=== PATIENT | female | born 1970 | race Caucasian/White ===

== ENCOUNTER 2019-08-05 07:18 | Outpatient (CLI) | payer OTHER, SELFPAY ==
--- NOTE | ~2019-08-05 | MM_ITS ---
EXAMINATION: MM screening [facility] BI w damian HISTORY: Screening mammogram TECHNIQUE: Craniocaudal and mediolateral oblique 3-D tomosynthesis images were obtained and synthetic 2-D images were generated. Bilateral rotated lateral cc views. CAD analysis was submitted and interp reted. COMPARISON: 07/2018 diagnostic right digital mammogram and limited right breast ultrasound examinatio n 07/30/2018, 03/13/2017 bilateral digital screening mammogram examinations BREAST PARENCHYMAL COMPOSITION: The breasts are heterogeneously dense, which may obscure small masses . FINDINGS: There is no evidence of suspicious mass, calcification, or architectural distortion to sugg est malignancy in either breast. There has been no suspicious interval change. IMPRESSION: 1. No mammographic evidence of malignancy. 2. Recommend routine screening mammography in one year. BI-RADS Category 1: Negative Reviewed, dictated and finalized at location A.
== END 2019-08-05 07:19 | disposition home or self-care (01) ==
PROVIDERS: PCP Family Medicine; Visit Provider Student in an Organized Health Care Education/Training Program
DX: Z12.31 Encounter for screening mammogram for malignant neoplasm of breast (principal)
CPT/HCPCS: 77063; 77067

== ENCOUNTER 2020-08-10 08:32 | Outpatient (CLI) | payer OTHER, SELFPAY ==
--- NOTE | ~2020-08-10 | MM_ITS ---
EXAMINATION: MM screening [facility] BI w damian HISTORY: Screening mammogram TECHNIQUE: Craniocaudal and mediolateral oblique 3-D tomosynthesis images were obtained and synthetic 2-D images were generated. CAD analysis was submitted and interpreted. COMPARISON: 08/05/2019 bilateral digital screening mammogram Diagnostic right digital mammogram and limited right breast ultrasound on 08/03/2018 07/30/2018, 03/13/2017, 11/19/2015 bilateral digital screening mammogram examinations BREAST PARENCHYMAL COMPOSITION: The breasts are heterogeneously dense, which may obscure small masses . FINDINGS: There is no evidence of suspicious mass, calcification, or architectural distortion to sugg est malignancy in either breast. There has been no suspicious interval change. IMPRESSION: 1. No mammographic evidence of malignancy. 2. Recommend routine screening mammography in one year. BI-RADS Category 1: Negative Reviewed, dictated and finalized at location A.
== END 2020-08-10 08:33 | disposition home or self-care (01) ==
LOC: ANHIMG 08:35
PROVIDERS: PCP Family Medicine; Visit Provider Student in an Organized Health Care Education/Training Program
DX: Z12.31 Encounter for screening mammogram for malignant neoplasm of breast (principal)
CPT/HCPCS: 77063; 77067

== ENCOUNTER 2021-07-23 14:16 | Outpatient (CLI) | payer OTHER, SELFPAY ==
--- NOTE | ~2021-07-23 | XR_ITS ---
EXAM: XR lumbar spine min 4V DATE: 07/23/2021 14:33 HISTORY: M54.42 - Lumbago with sciatica, left side . COMPARISON: None available. FINDINGS: 5 nonrib-bearing lumbar-type vertebral bodies. Pedicles intact. Normal vertebral body alig nment. Vertebral body heights preserved. Disc spaces maintained. Sclerosis and hypertrophy of the L3- 4 through L5-S1 facets. No fracture or dislocation. IMPRESSION: Lower lumbar facet arthropathy. Reviewed, dictated and finalized at location K.
== END 2021-07-23 14:17 | disposition home or self-care (01) ==
PROVIDERS: PCP Family Medicine; Visit Provider Family Medicine
DX: M54.42 Lumbago with sciatica, left side (principal); G89.29 Other chronic pain
CPT/HCPCS: 72110

== ENCOUNTER 2021-10-04 07:19 | Outpatient (CLI) | payer OTHER, SELFPAY ==
--- NOTE | ~2021-10-04 | MM_ITS ---
EXAMINATION: MM screening abhis[facility]k BI w damian HISTORY: Screening TECHNIQUE: Craniocaudal and mediolateral oblique 3-D tomosynthesis images were obtained and synthetic 2-D images were generated. CAD analysis was submitted and interpreted. COMPARISON: Comparison to multiple prior studies sequentially, with oldest reviewed study dated 11/2015. BREAST PARENCHYMAL COMPOSITION: The breasts are heterogeneously dense, which may obscure small masses . FINDINGS: There is no evidence of suspicious mass, calcification, or architectural distortion to sugg est malignancy in either breast. There has been no suspicious interval change. IMPRESSION: 1. No mammographic evidence of malignancy. 2. Recommend routine screening mammography in one year. BI-RADS Category 1: Negative Reviewed, dictated and finalized at location A.
== END 2021-10-04 07:20 | disposition home or self-care (01) ==
LOC: ANHIMG 07:21
PROVIDERS: PCP Family Medicine; Visit Provider Obstetrics & Gynecology
DX: Z12.31 Encounter for screening mammogram for malignant neoplasm of breast (principal)
CPT/HCPCS: 77063; 77067

== ENCOUNTER 2022-01-09 01:48 | Day surgery (SDC) | payer OTHER, SELFPAY ==
[2022-01-03 16:25] VITALS: BMI 22.0
--- NOTE | 2022-01-03 16:33 | PC.NURSE ---
Report to the Outpatient Waiting Room, entrance under the green pavilion located off [facility], at time _0600_ on date _[id number]_. Planned Procedure Time: _0730_. Time changes happen often and if your time is changed the preop area will call you the afternoon before. - You and your visitor will be asked to self-screen and do not enter if you have any COVID symptoms. - We encourage only one visitor and NO visitors under age 16 are allowed at this time. Your visitor will receive communication by the phone number that is given day of service. - The patient visitor is requested to social distance or may leave the building when not with patient due to restrictions. - A mask is required within the hospital. Patients may have clear liquids (water, carbonated beverages, clear teas, apple juice) until 3 hours prior to surgery with a maximum of 20 ounces. - No food from midnight until time of surgery Take the following medications with a SIP of water the morning of surgery: __Gabapentin Medications to discontinue per physician None Date to take last dose Please no make-up, nail hungarian, hairspray, perfume, deodorant, or body powder the day of surgery. No jewelry (including any body piercings) or valuables the day of surgery, leave them at home. Please take a shower or bath the night before, or the morning of, surgery with an antibacterial soap. Wear comfortable, loose fitting clothing. - Jewelry must be removed prior to entering the operating room. Rings and piercings that are not removed may be cut off. - The hospital will not accept responsibility for valuables. - Please leave all valuables, including medications, at home the day of surgery. If you are going home after surgery, a licensed coach driver must drive you home. - NO public transportation without another adult. - We recommend that an adult stay with you for 24 hours following discharge. - We also recommend that you do not drive, make important decision, drink alcoholic beverages, or take any drugs that were not prescribed by your health care provider for at least 24 hours after your discharge time. Follow any additional instructions given to you from your surgeon. If you or anyone in your household have experienced Covid symptoms in the past week, please notify your surgeon or the nurse liaison at the phone number below for possible testing. Telephone instructions given to __Patient___and asked if any additional questions and then verbalized understanding. Patient advised to call surgeon office or pre surgery nurse liaison [phone] if any additional questions.
[2022-01-09] MEDS: ACETAMINOPHEN 500 MG TABLET 1000 MG PO (06:40)
[2022-01-09 06:41] VITALS: BP 130/86; PULSE 100; RESP 14; TEMP 36.5; O2SAT 100
--- NOTE | 2022-01-09 06:55 | WPDANESEPPF ---
Anes - Initial Pre Proc Eval Procedure: Operation Date: 01/09/22 07:30 Proposed Procedures p Hysteroscopy Dilation and Curettage with Francoise Endometrial Ablation - Boris Bryant MD Date/Time: 01/09/22 06:55 Surgeon: Boris Bryant MD Pre Op Diagnosis: Menometrorrhagia Patient Data Age: 51 Gender: F Height: 1.6 m Weight: 56.9 kg Last Vital Signs Temp 36.5 C 01/09/22 06:41 Pulse 100 01/09/22 06:41 Resp 14 01/09/22 06:41 BP 130/86 01/09/22 06:41 Pulse Ox 100 01/09/22 06:41 O2 Del Method Room Air 01/09/22 06:41 Allergies Allergy/AdvReac Type Severity Reaction Status Date / Time iodine Allergy Unknown Rash Verified 01/09/22 06:45 shellfish derived Allergy Unknown Rash Verified 01/09/22 06:45 Sulfa (Sulfonamide Allergy Unknown Rash Verified 01/09/22 06:45 Antibiotics) Home Medications Medication Instructions Recorded Confirmed Type cetirizine 10 mg tablet (Zyrtec) 10 mg PO DAILY PRN allergy symptoms 08/16/19 01/03/22 History gabapentin 100 mg capsule 100 mg PO . q.a.m. #90 caps 11/14/21 01/09/22 Rx gabapentin 300 mg capsule 300 mg PO . q.h.s. #90 caps 11/14/21 01/03/22 Rx montelukast 10 mg tablet 10 mg PO DAILY #90 tabs 11/14/21 01/03/22 Rx (Singulair) ibuprofen 200 mg tablet 200 mg PO QAM 01/03/22 01/03/22 History Patient hx anesthesia problems: none Family hx anesthesia problems: none Results Review: All pre-operative results and documents have been reviewed as part of the pre-operative evaluation. [facility], [facility] Past Medical History Medical History Abnormal mammogram 07-30-2018 right breast mass dx mamm and US done 08/03/2018 Benign - recommend annual screening Abnormal Pap smear of cervix (~2010) BMI 22.0-22.9, adult Carpal tunnel syndrome of left wrist the patient had surgery on the right previously. She is right-hand dominant Chronic low back pain with left-sided sciatica (~03/2021) Colon cancer screening COVID-19 (01/31/20) Encounter for IUD insertion 2000 Mirena insertion 05/08/17 Mirena removal/reinsertion Encounter for IUD removal 05/08/17 Mirena removal/reinsertion 09/28/18 Mirena removal Encounter for wellness examination in adult Headache History of back problems Kidney stone (~1996) Metatarsalgia of both feet Pain of right thumb Screening mammogram, encounter for Seasonal allergic rhinitis TMJ (temporomandibular joint syndrome) Trigeminal neuralgia of right side of face Surgical History Surgical History History of carpal tunnel surgery (~2008) Family History Family History Grandparent Cerebrovascular accident maternal grandmother Hypertension maternal grandmother Osteoporosis maternal grandmother Breast cancer maternal grandmother Mother Hypertension Father Atrial fibrillation Other Carcinoma of colon paternal aunt Social History Social History Smoking status: Never smoker Alcohol intake: current Drinks per week: 1 Substance use: never Substance use type: does not use Living arrangements: with family Additional living arrangements comments: 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
--- NOTE | 2022-01-09 07:33 | PM.IMHP ---
H&P: HPI History of Present Illness Date/Time: 01/09/22 07:33 51-year-old female presents complaints menstrual cycles lasting 5-7 days 3-5 days heavy clotting cramping has been ongoing issue and increasing over the past 6-12 months. No issues throughout the rest of the month and all of her other imaging has been normal. Chief Complaint: Menometrorrhagia Review of Systems Review of Systems: All systems reviewed & are unremarkable except as noted in HPI and below PMFSH Past Medical History Medical History Abnormal mammogram 07-30-2018 right breast mass dx mamm and US done 08/03/2018 Benign - recommend annual screening Abnormal Pap smear of cervix (~2010) BMI 22.0-22.9, adult Carpal tunnel syndrome of left wrist the patient had surgery on the right previously. She is right-hand dominant Chronic low back pain with left-sided sciatica (~03/2021) Colon cancer screening COVID-19 (01/31/20) Encounter for IUD insertion 2000 Mirena insertion 05/08/17 Mirena removal/reinsertion Encounter for IUD removal 05/08/17 Mirena removal/reinsertion 09/28/18 Mirena removal Encounter for wellness examination in adult Headache History of back problems Kidney stone (~1996) Metatarsalgia of both feet Pain of right thumb Screening mammogram, encounter for Seasonal allergic rhinitis TMJ (temporomandibular joint syndrome) Trigeminal neuralgia of right side of face Surgical History Surgical History History of carpal tunnel surgery (~2008) Family History Family History Grandparent Cerebrovascular accident maternal grandmother Hypertension maternal grandmother Osteoporosis maternal grandmother Breast cancer maternal grandmother Mother Hypertension Father Atrial fibrillation Other Carcinoma of colon paternal aunt Social History Social History Smoking status: Never smoker Alcohol intake: current Drinks per week: 1 Substance use: never Substance use type: does not use Living arrangements: with family Additional living arrangements comments: 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 q.a.m. #90 caps 11/14/21 01/09/22 Rx gabapentin 300 mg capsule 300 mg PO . q.h.s. #90 caps 11/14/21 01/03/22 Rx montelukast 10 mg tablet 10 mg PO DAILY #90 tabs 11/14/21 01/03/22 Rx (Singulair) ibuprofen 200 mg tablet 200 mg PO QAM 01/03/22 01/03/22 History Allergies Allergy/AdvReac Type Severity Reaction Status Date / Time iodine Allergy Unknown Rash Verified 01/09/22 06:45 shellfish derived Allergy Unknown Rash Verified 01/09/22 06:45 Sulfa (Sulfonamide Allergy Unknown Rash Verified 01/09/22 06:45 Antibiotics) Vital Signs Vital Signs - 24 hr 01/09/22 06:41 Temperature 97.7 F Pulse Rate 100 Respiratory Rate 14 Blood Pressure 130/86 Pulse Oximetry 100 Oxygen Delivery Room Air Exam Const: General: cooperative, healthy appearing and comfortable Resp: Effort & Inspection: normal respiratory effort Auscultation: clear to auscultation bilaterally Cardio: Rate: regular rate Rhythm: regular rhythm GI: Inspection: normal to inspection Auscultation: normal bowel sounds : External Female Exam: normal external appearance Speculum Exam - Vagina: normal appearance of the vagina Speculum Exam - Cervix: normal appearance of
--- NOTE | 2022-01-09 07:35 | WPDHPUPDATE1 ---
History and Physical Update Update Date/Time: 01/09/22 07:35 History and Physical has been reviewed, including an updated exam of the patient. There are NO changes in the patient's condition. Risks, benefits, and alternatives have been discussed and questions answered. Patient agrees to proceed with procedure.
[2022-01-09] MEDS: ceFAZolin 2 GM/D5W 50 ML 2 GM/50 ML BAG IVPB (07:39)
[2022-01-09] MEDS: LIDOCAINE HCL 1% PF 30 ML VIAL 10 ML INFILTRATE (07:48)
[2022-01-09] MEDS: KETOROLAC 30 MG/ML VIAL (*BKC) IV PUSH (07:56)
--- NOTE | 2022-01-09 08:11 | W.PM.PROC2 ---
Procedure Note - Detailed Date of Procedure 01/09/22 Pre-op Diagnosis Menometrorrhagia Post-op Diagnosis Same Procedure Performed Hysteroscopy with uterine curettings Surgeon Boris Bryant MD Anesthesia MAC Indications Menometrorrhagia Findings 1. Small intrauterine cavity with no abnormalities noted on hysteroscopic exam. Description of Procedure Patient was prepped in usual manner for this procedure. Cervix was dilated to allow the hysteroscope placed which did reveal small intrauterine cavity with no abnormalities polyps or fibroids. Small amount of curettings were obtained the these were very scant in amount. Ablation instrument was then placed and unable to appropriately place device due to small cavity. At this point that portion of the procedure was aborted and the entire procedure at this point was considered complete. Patient was then sent to the recovery room in stable condition. Estimated Blood Loss 10 Drains No Packing No Pathology Yes Complications No immediate complications (Though unable to perform ablation.) Condition Stable Disposition PACU [facility] Billing Surgery - Charge Forward: Surgery Billing
[2022-01-09 08:17] VITALS: BP 101/72; PULSE 85; RESP 12; O2SAT 98
[2022-01-09] MEDS: LACTATED RINGERS 1,000 ML 30 ML IV CONT (08:17)
[2022-01-09 08:45] VITALS: BP 117/67; PULSE 79; RESP 20
[2022-01-09 09:15] VITALS: BP 114/74; PULSE 71; RESP 20
== END 2022-01-09 09:20 | disposition home or self-care (01) ==
PROVIDERS: PCP Family Medicine; Visit Provider Obstetrics & Gynecology
PROC: 0U5B8ZZ Destruction of Endometrium, Via Natural or Artificial Opening Endoscopic (ICD-10-PCS; CPT 58563; principal; 2022-01-09 07:30)
DX: N92.1 Excessive and frequent menstruation with irregular cycle (principal)
CPT/HCPCS: 58558; 88305; A9270; J0690; J1885; J2250; J2405; J2704; J7030; J7120

== ENCOUNTER 2022-10-24 07:16 | Outpatient (CLI) | payer OTHER, SELFPAY ==
--- NOTE | ~2022-10-24 | MM_ITS ---
EXAMINATION: MM screening [facility] BI w damian HISTORY: Screening mammogram TECHNIQUE: Craniocaudal and mediolateral oblique 3-D tomosynthesis images were obtained and synthetic 2-D images were generated. CAD analysis was submitted and interpreted. COMPARISON: 10/04/2021, 08/10/2020, 08/05/2019 BREAST PARENCHYMAL COMPOSITION: The breasts are heterogeneously dense, which may obscure small masses . FINDINGS: No suspicious mass, calcification, or architectural distortion are identified in either mac ast to suggest malignancy. There has been no suspicious interval change. IMPRESSION: 1. No mammographic evidence of malignancy. 2. Recommend routine screening mammography in one year. BI-RADS Category 1: Negative Reviewed, dictated and finalized at location A.
== END 2022-10-24 07:17 | disposition home or self-care (01) ==
LOC: ANHIMG 07:20
PROVIDERS: PCP Family Medicine; Visit Provider Obstetrics & Gynecology
DX: Z12.31 Encounter for screening mammogram for malignant neoplasm of breast (principal)
CPT/HCPCS: 77063; 77067

== ENCOUNTER 2022-11-28 01:34 | Day surgery (SDC) | payer OTHER, SELFPAY ==
[2022-11-18 14:34] VITALS: BMI 22.3
[2022-11-28 06:27] VITALS: BP 139/80; PULSE 90; RESP 18; TEMP 36.2; O2SAT 100; BMI 22.1
[2022-11-28] MEDS: LACTATED RINGERS 1,000 ML 150 ML IV CONT (06:38)
--- NOTE | 2022-11-28 07:22 | PM.HPGS ---
History of Present Illness History of Present Illness Consent: Risks, benefits, and alternatives have been discussed and questions answered. Patient agrees to proceed with procedure. Chief complaint: neoplasm screening Narrative: Xiomy Aj is a 52 year old female here for first screening colonoscopy Review of Systems Constitutional: Constitutional: Denies headache(s) and Denies weakness Eyes: Eyes: Denies blurry vision ENT: Reports Normal hearing present, Denies headache(s) and Denies neck pain Cardiovascular: Cardiovascular: Denies chest pain and Denies dyspnea Respiratory: Respiratory: Denies dyspnea Gastrointestinal: Gastrointestinal: Reports no additional gastrointestinal complaints Genitourinary: Genitourinary: Denies dysuria Musculoskeletal: Musculoskeletal: Denies neck pain Integumentary/Breasts: Skin/Breast: Denies dry skin Neurologic: Reports Normal hearing present, Denies headache(s) and Denies weakness Psychiatric: Psychiatric: Denies anxiety Endocrine: Endocrine: Denies change in body appearance Hematologic/Lymphatic: Hematologic/Lymphatic: Denies easy bleeding Allergic/Immunologic: Allergic/Immunologic: Denies urticaria PMFSH Past Medical History Medical History (Updated 10/24/22 @ 20:13 by Nishant Ortiz MD) Abnormal mammogram 07-30-2018 right breast mass dx mamm and US done 08/03/2018 Benign - recommend annual screening Abnormal Pap smear of cervix (~2010) BMI 22.0-22.9, adult Carpal tunnel syndrome of left wrist the patient had surgery on the right previously. She is right-hand dominant Chronic low back pain with left-sided sciatica (~03/2021) Colon cancer screening COVID-19 (01/31/20) Encounter for IUD insertion 2000 Mirena insertion 05/08/17 Mirena removal/reinsertion Encounter for IUD removal 05/08/17 Mirena removal/reinsertion 09/28/18 Mirena removal Encounter for wellness examination in adult Headache History of back problems Kidney stone (~1996) Metatarsalgia of both feet Pain of right thumb Screening mammogram, encounter for normal mammogram 10/24/2022. Seasonal allergic rhinitis TMJ (temporomandibular joint syndrome) Trigeminal neuralgia of right side of face Surgical History Surgical History History of carpal tunnel surgery (~2008) History of hysteroscopy (01/09/22) Hscope D&C / Ablation Family History Family History Grandparent Cerebrovascular accident maternal grandmother Hypertension maternal grandmother Osteoporosis maternal grandmother Breast cancer maternal grandmother Mother Hypertension Father Atrial fibrillation Other Carcinoma of colon paternal aunt Social History Social History (Updated 08/08/22 @ 08:24 by SWETA Jordan) Smoking status: Never smoker Alcohol intake: current Drinks per week: 2 Substance use: never Substance use type: does not use Lack of Transportation: No Lack of Food: Never True Current Housing: I Have Housing Concerned About Future Housing: No Difficulty Paying Gas/Electric Bills: No Difficulty Paying for Meds: No Currently Unemployed: No Education: Bachelor's Degree Difficulty w/ Childcare or Family Care: No Living arrangements: with family Additional living arrangements comments: Occupation/Education: occupation 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
--- NOTE | 2022-11-28 07:24 | WPDANESEPPF ---
Anes - Initial Pre Proc Eval Procedure: Operation Date: 11/28/22 07:30 Proposed Procedures p Screening Colonoscopy - Abdirahman Busby MD Date/Time: 11/28/22 07:24 Surgeon: Abdirahman Busby MD Pre Op Diagnosis: neoplasm screening Patient Data Age: 52 Gender: F Height: 1.6 m Weight: 56.6 kg Last Vital Signs Temp 97.2 F L 11/28/22 06:27 Pulse 90 11/28/22 06:27 Resp 18 11/28/22 06:27 BP 139/80 11/28/22 06:27 Pulse Ox 100 11/28/22 06:27 O2 Del Method Room Air 11/28/22 06:27 Allergies Allergy/AdvReac Type Severity Reaction Status Date / Time iodine Allergy Unknown Rash Verified 11/28/22 06:22 shellfish derived Allergy Unknown Rash Verified 11/28/22 06:22 Sulfa (Sulfonamide Allergy Unknown Rash Verified 11/28/22 06:22 Antibiotics) Home Medications Medication Instructions Recorded Confirmed Type cetirizine 10 mg tablet (Zyrtec) 10 mg PO DAILY PRN allergy symptoms 08/16/19 11/28/22 History gabapentin 100 mg capsule See Rx Instructions PO .COMPLEX 08/05/22 11/28/22 Rx #270 caps meloxicam 15 mg tablet 15 mg PO DAILY PRN Pain #90 tabs 08/28/22 11/28/22 Rx montelukast 10 mg tablet 10 mg PO DAILY #90 tabs 08/28/22 11/28/22 Rx (Singulair) Patient hx anesthesia problems: none Family hx anesthesia problems: none Results Review: All pre-operative results and documents have been reviewed as part of the pre-operative evaluation. [facility] Past Medical History Medical History (Updated 10/24/22 @ 20:13 by Nishant Ortiz MD) Abnormal mammogram 07-30-2018 right breast mass dx mamm and US done 08/03/2018 Benign - recommend annual screening Abnormal Pap smear of cervix (~2010) BMI 22.0-22.9, adult Carpal tunnel syndrome of left wrist the patient had surgery on the right previously. She is right-hand dominant Chronic low back pain with left-sided sciatica (~03/2021) Colon cancer screening COVID-19 (01/31/20) Encounter for IUD insertion 2000 Mirena insertion 05/08/17 Mirena removal/reinsertion Encounter for IUD removal 05/08/17 Mirena removal/reinsertion 09/28/18 Mirena removal Encounter for wellness examination in adult Headache History of back problems Kidney stone (~1996) Metatarsalgia of both feet Pain of right thumb Screening mammogram, encounter for normal mammogram 10/24/2022. Seasonal allergic rhinitis TMJ (temporomandibular joint syndrome) Trigeminal neuralgia of right side of face Surgical History Surgical History History of carpal tunnel surgery (~2008) History of hysteroscopy (01/09/22) Hscope D&C / Ablation Family History Family History Grandparent Cerebrovascular accident maternal grandmother Hypertension maternal grandmother Osteoporosis maternal grandmother Breast cancer maternal grandmother Mother Hypertension Father Atrial fibrillation Other Carcinoma of colon paternal aunt Social History Social History (Updated 08/08/22 @ 08:24 by SWETA Jordan) Smoking status: Never smoker Alcohol intake: current Drinks per week: 2 Substance use: never Substance use type: does not use Lack of Transportation: No Lack of Food: Never True Current Housing: I Have Housing Concerned About Future Housing: No Difficulty Paying Gas/Electric Bills: No Difficulty Paying for Meds: No Currently Unemployed: No Education: Bachelor's Degree Difficulty w/ Childcare or Family Care: No Living arrangements: with family Additional living arrangements comments: Occupation/Education: occupation 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
[2022-11-28 07:42] VITALS: BP 111/73; PULSE 79; RESP 18; O2SAT 97
[2022-11-28 07:52] VITALS: BP 129/82; PULSE 72; RESP 18; O2SAT 100
[2022-11-28 08:02] VITALS: BP 126/80; PULSE 72; RESP 18; O2SAT 100
== END 2022-11-28 08:10 | disposition home or self-care (01) ==
PROVIDERS: PCP Family Medicine; Visit Provider Internal Medicine Gastroenterology
PROC: 0DJD8ZZ Inspection of Lower Intestinal Tract, Via Natural or Artificial Opening Endoscopic (ICD-10-PCS; CPT 45378; principal; 2022-11-28 07:30)
DX: Z12.11 Encounter for screening for malignant neoplasm of colon (principal)
CPT/HCPCS: 45378; J2704; J7120

== ENCOUNTER 2023-12-25 07:16 | Outpatient (CLI) | payer OTHER, SELFPAY ==
--- NOTE | ~2023-12-25 | MM_ITS ---
EXAMINATION: MM screening abhishek BI w damian HISTORY: Screening TECHNIQUE: Craniocaudal and mediolateral oblique 3-D tomosynthesis images were obtained and synthetic 2-D images were generated. CAD analysis was submitted and interpreted. COMPARISON: Comparison to multiple prior studies sequentially, with oldest reviewed study dated 07/30. BREAST PARENCHYMAL COMPOSITION: Dense: The breasts are heterogeneously dense, which may obscure small masses FINDINGS: There is no evidence of suspicious mass, calcification, or architectural distortion to sugg est malignancy in either breast. There has been no suspicious interval change. IMPRESSION: 1. No mammographic evidence of malignancy. 2. Recommend routine screening mammography in one year. BI-RADS Category 1: Negative Reviewed, dictated and finalized at location B.
== END 2023-12-25 07:17 | disposition home or self-care (01) ==
LOC: ANHIMG 07:18
PROVIDERS: PCP Family Medicine; Visit Provider Obstetrics & Gynecology
DX: Z12.31 Encounter for screening mammogram for malignant neoplasm of breast (principal)
CPT/HCPCS: 77063; 77067